=== PATIENT | female | born 1960 | race Caucasian/White ===

== ENCOUNTER 2019-11-22 14:45 | Emergency (ER) | payer MEDICAID ==
[~2019-11-22] VITALS: Ht 160 cm; Wt 77.0 kg
[2019-11-22] MEDS ORDERED: LOSA50TA41 PO (14:54)
[2019-11-22] MEDS ORDERED: METF-414 PO (14:54)
[2019-11-22 18:04] VITALS: BP 145/62
== END 2019-11-22 18:06 | disposition home or self-care (01) ==
LOC: ER 14:45
DX: I10 Essential (primary) hypertension (principal); H11.32 Conjunctival hemorrhage, left eye; E11.9 Type 2 diabetes mellitus without complications; Z79.84 Long term (current) use of oral hypoglycemic drugs; Z79.899 Other long term (current) drug therapy
CPT/HCPCS: 82962; 99284